=== PATIENT | female | born 1945 | race Caucasian/White ===

== ENCOUNTER 2016-11-02 11:47 | Emergency (ER) | payer OTHER ==
[~2016-11-02] VITALS: Ht 157.5 cm; Wt 48.0 kg
[2016-11-02] MEDS ORDERED: SODIUM CHLORIDE 0.9% 1,000ML IVBOLUS ONE (12:30)
[2016-11-02] MEDS ORDERED: SODIUM CHLORIDE FLUSH 10ML SYR IVF ONE (12:30)
[2016-11-02] MEDS ORDERED: MORPHINE SULFATE 4 MG/ML, 1ML IVPush PRN (12:30)
[2016-11-02] MEDS ORDERED: ONDANSETRON 2MG/ML, 2ML IVPush ONE (12:30)
[2016-11-02 12:58] LABS: BLOOD UREA NITROGEN 15 mg/dL (7-18)
[2016-11-02] MEDS ORDERED: PLEASE ENTER ALLERGIES MC SCH ×2 (13:00)
[2016-11-02 13:06] LABS: ASPARTATE AMINO TRANSFERASE 40 U/L (15-37)
[2016-11-02] MEDS ORDERED: CEFTRIAXONE 1,000 MG in SODIUM CHLORIDE 0.9% 50 ML IVPB ONE (16:00)
[2016-11-02 16:47] VITALS: BP 104/62
== END 2016-11-02 18:14 | disposition short-term general hospital (02) ==
LOC: ED 12:39
DX: S39.92XA Unspecified injury of lower back, initial encounter (principal); I25.2 Old myocardial infarction; R53.1 Weakness; N30.00 Acute cystitis without hematuria; Z98.890 Other specified postprocedural states; W01.0XXA Fall on same level from slipping, tripping and stumbling without subsequent striking against object, initial encounter; Y93.89 Activity, other specified; Y99.8 Other external cause status; Y92.009 Unspecified place in unspecified non-institutional (private) residence as the place of occurrence of the external cause
CPT/HCPCS: 36415; 71010; 72110; 73502; 80053; 81001; 82550; 83605; 84145; 85025; 87040; 87077; 87086; 87186; 93005; 96365; 96366; 99285; J0696; 96361